=== PATIENT | female | born 1980 | race Caucasian/White ===

== ENCOUNTER 2021-10-09 12:49 | Emergency (ER) | payer SELFPAY ==
--- NOTE | ~2021-10-09 | US_ITS ---
EXAMINATION: US pelvic complete w TV DATE: 10/09/2021 17:11 INDICATION: Suspected miscarriage Comparison:No prior studies for comparison. TECHNIQUE: Multiple transabdominal and endovaginal sonographic images of the pelvis performed. FINDINGS: The uterus measures 7.1 x 5.8 x 7 cm. There is a complicated nabothian cyst measuring 4 mm. The endometrial complex measures 1.4 cm. The right ovary measures 2.8 x 1.5 x 1.5 cm and the left ovary measures 3.1 x 1.4 x 3.3 cm. There ar e small follicles in each ovary. Normal doppler signal in both ovaries. There is no free fluid in the pelvis. There are no abnormal masses seen on either side. IMPRESSION: 1. Mild uterine enlargement with endometrial thickening. No intrauterine is identified. If there is a positive test, considerations include very early intrauterine , failed and ectopic . Recommend follow-up with serial quantitative beta-hCG levels and ult rasound as clinically indicated. Reviewed, dictated and finalized at location A. [facility] IMPRESSION: 1. Mild uterine enlargement with endometrial thickening. No intrauterine pregna ncy is identified. If there is a positive test, considerations includ e very early intrauterine , failed and ectopic . Re commend follow-up with serial quantitative beta-hCG levels and ultrasound as cl inically indicated.
[2021-10-09 13:13] VITALS: BP 108/59; PULSE 102; RESP 16; TEMP 37.3; O2SAT 99
[2021-10-09 14:48] VITALS: BP 120/58; PULSE 89; RESP 16; TEMP 37.3; O2SAT 100
[2021-10-09 15:19] LABS: Add Urine Microscopic? NO; Appearance Urine Clear (Clear); Bilirubin Urine Negative (Negative); Blood Urine Negative (Negative); Color Urine Straw (Yellow); Glucose Urine UA Negative (Negative); Ketones Urine Negative (Negative); Leukocyte Esterase Ur Negative LEU/UL (Negative); Nitrate Urine Negative (Negative); Protein Urine Negative (Negative); Urobilinogen Urine Negative mg/dL (<2.0)
--- NOTE | 2021-10-09 15:20 | ED.GENADULT ---
HPI - General Adult General Chief complaint: Abdominal Pain Stated complaint: fever, abd pain Time Seen by Provider: 10/09/21 14:54 Source: patient Mode of arrival: ambulatory Limitations: no limitations History of Present Illness HPI narrative: Patient is a 41-year-old female presenting with chief complaint of low-grade fever, body aches and abdominal pain that began on Saturday. Patient reports that 09/19/21 she had vaginal bleeding and cramping and was diagnosed at the [facility] with a miscarriage. Patient was told that the fetus stopped growing at approximately 9-weeks. patient reports that she did not follow-up to be evaluated before miscarriage completion. Patient reports that she has had multiple miscarriages since being diagnosed with hypothyroidism. Patient denies vaginal discharge. Patient reports that her vaginal bleeding has stopped. She reports occasional spotting. 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 Related Data Home Medications Medication Instructions Recorded Confirmed levothyroxine 50 10/09/21 Allergies Allergy/AdvReac Type Severity Reaction Status Date / Time No Known Allergies Allergy Verified 10/09/21 14:54 Review of Systems Review of Systems: CONSTITUTIONAL: Reports fever, body aches denies chills, or sweats. EYES: Denies visual changes, redness, or discharge. ENT: Denies rhinorrhea, congestion, sore throat, or otalgia. CARDIOVASCULAR: Denies chest pain, palpitations, or edema. RESPIRATORY: Denies cough or dyspnea. GASTROINTESTINAL: Reports abdominal pain, denies nausea, vomiting, or diarrhea. GENITOURINARY: Denies dysuria or hematuria. SKIN: Denies rash or itching. MUSCULOSKELETAL: Denies back pain, joint pain, or myalgia. NEUROLOGIC: Denies headache, numbness, dizziness, or weakness. PSYCHIATRIC: Denies anxiety or depression. Exam Narrative: GENERAL: Well-appearing, well-nourished, and in no acute distress. HEAD: Normocephalic, atraumatic. EYES: PERRLA and EOMI. CHEST: Clear to auscultation. No respiratory distress. No wheezes rales or rhonchi HEART: Regular rate and rhythm. No murmur heard. Normal peripheral pulses. Pelvic: Patient declined. ABDOMEN: Soft, diffusely tender to entire abdomen per patient with gaurding, greater to lower abdomen, not gravid in appearance, nondistended, normal active bowel sounds. EXTREMITIES: Normal range of motion. No edema. SKIN: Warm, dry, no rash. NEURO: No focal deficits. Alert and oriented x3. PSYCH: Normal mood and affect. Course Vital Signs Vital signs: Vital Signs Temperature 99.1 F 10/09/21 13:13 Pulse Rate 102 H 10/09/21 13:13 Respiratory Rate 16 10/09/21 13:13 Blood Pressure 108/59 L 10/09/21 13:13 Pulse Oximetry 99 10/09/21 13:13 Temperature 99.2 F 10/09/21 20:09 Pulse Rate 109 H 10/09/21 20:09 Respiratory Rate 14 10/09/21 20:09 Blood Pressure 113/69 10/09/21 20:09 Pulse Oximetry 99 10/09/21 20:09 Medical Decision Making MDM Narrative Medical decision making narrative: Patient is telling conflicting stores to the nurse and I. She told me she passed the miscarriage but told the nurse she never had it confirmed that she was miscarrying or whether or not it completed. Consult with Dr. Monk physician the patient's vitals, labs, presentation, imaging. He states he had patient rested Emergency department and discharge her home with doxycycline and instructed of the importance of following up in his office for further evaluation as if she does not she can have detrimental consequences that can result in sepsis and hysterectomy. Patient verbalizes understanding and agreement with plan and the need for follow-up. Patient reports feeling greatly improved and is in agreement with outpatient treatment. Patient has been instructed to return to emergency department should she have any worsening or concerning symptoms. Vital Signs Vi
[2021-10-09 15:28] LABS: Basophils Absolute Auto 0.1 K/mm3 (0.0-0.1); Basophils Percent Auto 0.3 % (0.2-1.2); Eosinophils Absolute Auto 0.3 K/mm3 (0-0.3); Eosinophils Percent Auto 1.7 % (0-4.4); Hematocrit 32.1 % (37.0-47.0); Hemoglobin 11.3 g/dL (12.0-15.0); Immature Granulocyte Absolute 0.07 K/mm3 (0.00-0.031); Immature Granulocyte Percent A 0.5 % (0-0.5); Lymphocytes Absolute Auto 2.86 K/mm3 (0.9-3.2); Mean Corpuscular HGB Conc 35.2 g/dl (32-36); Mean Corpuscular Hemoglobin 31.1 pg (26-34); Mean Corpuscular Volume 88.4 fl (80-100); Monocytes Absolute Auto 0.8 K/mm3 (0.1-0.6); Monocytes Percent Auto 5.3 % (2.6-8.5); Neutrophils Percent Auto 73.2 % (45.5-73.1); Platelet Count Result 316 k/mm3 (150-375); Red Blood Count 3.63 M/mm3 (4.2-5.4); Red Cell Distribution Width 12.3 % (11.5-14.5)
[2021-10-09 15:39] LABS: Alanine Aminotransferase 19 U/L (4-35); Albumin Level 4.3 g/dL (3.5-5.1); Alkaline Phosphatase 113 U/L (38-126); Anion Gap 9 mmol/L (8-16); Aspartate Amino Transferase 36 U/L (14-36); Bilirubin,Total 0.4 mg/dL (0.2-1.3); Blood Urea Nitrogen 6 mg/dL (7-17); Calcium 8.8 mg/dL (8.4-10.2); Carbon Dioxide 27 mmol/L (22-30); Chloride 100 mmol/L (98-107); Estimated CRCL calculation 101 ml/min; Estimated Glomerular Filt Rate > 60; Glucose 92 mg/dL (65-110); Potassium 3.1 mmol/L (3.4-5.0); Sodium 136 mmol/L (137-145)
[2021-10-09 15:55] LABS: Beta HCG Quantitative 39.39 mIU/ML
[2021-10-09 16:05] LABS: Specific Grav Ur 1.003 (1.001-1.035)
[2021-10-09 17:26] VITALS: TEMP 39.3
[2021-10-09] MEDS: SODIUM CHLORIDE 0.9% IV 1,000 ML 999 ML IV CONT ×2 (18:38)
[2021-10-09] MEDS: cefTRIAXone 2 GM in SODIUM CHLORIDE 0.9% IV 100 ML 200 ML IVPB (18:39)
[2021-10-09] MEDS: IBUPROFEN 600 MG TABLET PO (18:42)
[2021-10-09 18:46] VITALS: TEMP 37.9
[2021-10-09 19:12] LABS: Lactic Acid Reflex 0.9 mmol/L (0.7-2.1)
[2021-10-09 20:09] VITALS: BP 113/69; PULSE 109; RESP 14; TEMP 37.3; O2SAT 99
== END 2021-10-09 20:30 | disposition home or self-care (01) ==
PROVIDERS: Physician Assistant; Emergency Provider Emergency Medicine
DX: N71.9 Inflammatory disease of uterus, unspecified (principal)
CPT/HCPCS: 36415; 76830; 76856; 80053; 81003; 83605; 84702; 85025; 87040; 96365; 96367; 99284; A9270; J0131; J0696; J7030